=== PATIENT | male | born 2005 | race Hispanic/Latino ===

== ENCOUNTER 2025-01-12 13:25 | Emergency (ER) | payer BC ==
[2025-01-12 14:41] LABS: #Basophils Less than 0.03 10x3/uL (0.0-0.2); #Eosinophils Less than 0.03 10x3/uL (0.0-0.5); #Monocytes 0.26 10x3/uL (0.0-1.1); #Neutrophils 5.15 10x3/uL (1.5-8.4); %Basophils 0.3 % (0.0-2.0); %Eosinophils 0.0 % (0.0-6.0); %Lymphocytes 16.9 % (18.0-47.0); %Monocytes 4.0 % (0.0-10.0); %Neutrophils 78.6 % (40.0-75.0); Hematocrit 43.1 % (38.8-50.0); Hemoglobin 14.6 g/dL (13.5-17.5); Mean Corpuscular Hemoglobin 30.9 pg (27.0-33.0); Mean Corpuscular Volume 91.3 fL (81.2-95.1); Platelet Count 185 10x3/uL (150-450); Red Blood Cell (RBC) Count 4.72 10x6/uL (4.32-5.72); White Blood Cell (WBC) Count 6.55 10x3/uL (3.5-10.5)
[2025-01-12 14:52] LABS: Cocaine Metabolite Screen Negative (Negative); THC/Cannabinoid Screen Negative (Negative); Tricyclic Screen Negative (Negative)
[2025-01-12 14:56] LABS: ALT (SGPT) 28 U/L (Less than 45); AST (SGOT) 45 U/L (11-34); Albumin 5.2 g/dL (3.1-4.5); Alkaline Phosphatase 84 U/L (50-130); Anion Gap 26 mmol/L (10-20); BUN (Urea Nitrogen) 18 mg/dL (8.9-20.6); Bilirubin, Total 1.1 mg/dL (0.3-1.2); Calc. Creatinine Clearance 0 mL/min (70-130); Calcium 10.4 mg/dL (7.8-10.44); Carbon Dioxide 17 mmol/L (22-29); Chloride 102 mmol/L (98-107); Globulin 2.6 g/dL (2.4-3.5); Glucose 65 mg/dL (70-105); Potassium 4.5 mmol/L (3.5-5.1); Sodium 140 mmol/L (136-145)
[2025-01-12 14:57] LABS: Acetaminophen Less than 10 mcg/mL (Less than 10); Salicylate Less than 8.0 mg/dL (Less than 8.0)
[2025-01-12 15:03] LABS: Troponin I Less than 0.010 ng/mL (< 0.028)
== END 2025-01-12 15:58 | disposition home or self-care (01) ==
LOC: CSHERS 13:25
DX: R00.2 Palpitations (principal)
CPT/HCPCS: 80053; 80306; 80307; 84484; 85025; 93005